=== PATIENT | male | born 1990 | race Caucasian/White ===

== ENCOUNTER 2018-02-03 13:33 | Emergency (ER) | payer SELFPAY ==
[2018-02-03 13:41] VITALS: BP 134/99
--- NOTE | 2018-02-03 14:04 | EDPHY ---
HPI/HX/ROS/PE/MDM Narrative: CHIEF COMPLAINT: Scalp laceration HPI: The patient is a 27-year-old male with no significant past medical history. Tetanus shot is up-to-date. Just prior to arrival, the patient was using his phone when he accidentally walked into the corner of a balcony at his house. He did not lose consciousness. He complains of a laceration to his forehead. He denies other injuries. Bleeding was controlled with dressing. REVIEW OF SYSTEMS: Aside from elements discussed in the HPI, a comprehensive 10-point review of systems was reviewed and is negative. PMH: None significant. SOCIAL HISTORY: Single. Denies drug abuse. PHYSICAL EXAM: General:Patient is alert, in no acute distress. Head: A 2 cm linear laceration is present in the center of the scalp. There is no deformity. There is no active bleeding. ENT:Eyes are normal to inspection. ENT inspection normal. Neck: Normal inspection. Full range of motion. Skin: Normal color. No rash. Warm and dry. Extremities: Normal appearance. Full range of motion. Neuro: Oriented x3. Normal motor function. Normal sensory function. ED Course: Patient was offered sutures versus skin adhesive and has chosen skin adhesive. He declines any local anesthetic. Procedure: Laceration repair with skin glue. The 2 cm laceration on the scalp was cleaned and explored to its base. There were no deep structures involved. The wound was repaired with tissue adhesive, with excellent wound approximation. The procedure was performed by myself. MDM: This patient presents with minor scalp laceration. I think he is very low risk for intracranial injury considering he simply walked into a balcony and is young and otherwise healthy. He has no focal neurologic signs. The patient and I discussed imaging and he agrees to decline imaging at this time. We discussed strict return precautions. General Time Seen by Provider: 02/03/18 13:41 Initial Vital Signs: Initial Vital Signs Temperature (C) 36.5 C 02/03/18 13:39 Heart Rate 95 02/03/18 13:39 Respiratory Rate 18 02/03/18 13:39 Blood Pressure 134/99 H 02/03/18 13:39 O2 Sat (%) 97 02/03/18 13:39 O2 Delivery Mode Room Air Allergies/Adverse Reactions: penicillin G Allergy (Verified 02/03/18 13:37) Sulfa (Sulfonamide Antibiotics) Allergy (Verified 02/03/18 13:37) Home Medications: Medication Instructions Recorded NK [No Known Home Meds] 02/03/18 Departure - Departure Disposition: Home, Routine, Self-Care Clinical Impression: Scalp laceration, Minor head injury Condition: Good Instructions: Care For Your Absorbable Stitches (ED) Additional Instructions: Return to the Emergency Department for fever, redness, discharge from wound, increasing pain or other worsening of condition.
--- NOTE | 2018-02-04 17:20 | ASMTCMCOM ---
CM Note CM Note Notes: CM SBIRT consult received following pt's discharge. Pt presented to the Emergency Department with a head laceration after hitting his head on his balcony. Per provider notes, there was no LOC and the pt has no significant medical history. This was the pt's first visit to this facility. No phone number provided by pt for follow up. CM unable to contact pt regarding potential need for resources. CM available for any further issues or concerns. Date Signed: 02/04/2018 05:20 PM Electronically Signed By:Violeta Fu RN
== END 2018-02-03 14:30 | disposition home or self-care (01) ==
PROC: 0HQ0XZZ Repair Scalp Skin, External Approach (ICD-10-PCS; principal; 2018-02-03)
DX: S01.01XA Laceration without foreign body of scalp, initial encounter (principal); W22.09XA Striking against other stationary object, initial encounter; Y92.019 Unspecified place in single-family (private) house as the place of occurrence of the external cause; Y93.C2 Activity, hand held interactive electronic device

== ENCOUNTER 2018-08-11 10:47 | Emergency (ER) | payer OTHER ==
--- NOTE | 2018-08-11 12:06 | EDPHY ---
General Time Seen by Provider: 08/11/18 12:06 Narrative: CLINICAL IMPRESSION: Right forearm laceration ASSESSMENT/PLAN: Patient is a 27-year-old male with no significant medical history who presents to the emergency department after sustaining a laceration to his right forearm approximately 2 hr prior to arrival. Patient is not toxic appearing, he is in no distress. Physical examination reveals 4 cm superficial laceration to the ulnar aspect of his mid right forearm. There is no evidence of deep structure involvement, neurovascular compromise, foreign body, or bony involvement. The wound was not contaminated, tetanus status was already up-to-date. The wound was irrigated and then repaired as discussed in the procedure note, the patient tolerated this well. Wound care instructions discussed with patient. He does not have a primary care provider, he will return to the emergency department 7- 10 days for suture removal. I have given him a referral to establish care in the area.. Return precautions discussed- he will return for increased pain, signs of infection, fever, vomiting, if the wound opens or for any other concerns. Patient verbalizes understanding and is in agreement with plan. DIFFERENTIAL DIAGNOSIS: includes but not limited to laceration of tendon or vascular structure, underlying fracture, laceration with retained FB ED PROCEDURES: Laceration Repair Verbal consent obtained by patient. Risks discussed, including but not limited to infection, pain, retained foreign body, need for additional repair, poor cosmetic result, tendon damage, nerve damage, poor wound healing, vascular damage. Alternatives to repair discussed. [place] protocol used to establish correct patient, procedure, equipment, administrative support assoc, and site. Anesthesia obtained by local infiltration. Anesthetized with 1% lidocaine with epinephrine. Laceration location right mid forearm, ulnar aspect, length 4 cm, depth 5 mm, Repair type simple. Patient was prepped and draped in usual sterile fashion. Hemostasis achieved with direct pressure. Wound explored through full range of motion and entire depth of wound probed and visualized with gloved finger. No suspicion for nerve damage, tendon damage, underlying fracture, vascular damage, foreign body, or contamination. Area was cleansed with Shur-Clens and irrigated with sterile saline as per protocol. No foreign body or material removed. Repair method 5.0 Prolene suture. Three tension sutures and for additional simple interrupted sutures for a total of 7 sutures were placed. Well aligned, closely approximated. wound was dressed with antibiotic ointment and a sterile dressing. Patient tolerated well with no immediate complications. Wound care: Clean and dry x 24 hours, gently clean with soap and water, cover with topical antibiotic ointment/bandage. Suture/Staple removal: 7-10 Days CHIEF COMPLAINT: Laceration HPI: Patient is a 27-year-old male with no significant medical history who presents to the emergency department after sustaining a laceration to his right forearm while working on his vehicle. Patient reports he was trying to change his alternate her when he accidentally cut his arm on the inside of the vehicle. He immediately was able to get the bleeding under control with a adhesive wrap. He denies any numbness or tingling of the arm or digit. He is right-hand dominant, he is up-to-date on his tetanus status. He denies any other injury or complaint. PAST MEDICAL HISTORY: Denies Pertinent Past Surgical History: Denies Social History: Denies cigarette smoking or illicit drug use REVIEW OF SYSTEMS: All other systems negative Constitutional: No fever, no chills Musculoskeletal: No deformity, no joint pain Skin: Denies rash, right forearm laceration. Neurological: No sensory loss or weakness. PHYSICAL EXAM: General Appearance: Alert, oriented, appropriate for age, cooperative, NAD, well hydrated, non-toxic appearing, VSS, no hypoxia. Neurological: Alert and oriented x 3 Skin: Right forearm with 4 cm laceration on the ulnar aspect of the mid forearm. Musculoskeletal: Patient with minimal associated tenderness to palpation of the mid forearm. He is able to supinate and pronate without difficulty. The radial, ulnar and median nerves were all tested. Radial nerve: Patient is able to extend wrist and fingers of the local joints. Ulnar nerve: Patient is able to abduct all fingers. Median nerve patient is able to oppose thumb to pinky. Radial pulse 2 +bilaterally. MEDICAL DECISION MAKING: Patient was seen independently. Secondary supervising physician at time of evaluation was Dr. Rascon, he did not evaluate this patient. Diagnosis: Right forearm laceration. New, requires workup Summary: See assessment and plan for summary of ED visit Clinical lab tests: Not applicable. Independent visualization of images, tracing, or specimens not applicable. Decision to obtain medical records or history from someone other than the patient: No Review / Summarize previous medical records: Yes Discussed patient with another provider: Yes, Dr. Rascon. - History Smoking Status: Never smoked - Objective Vital Signs: Initial Vital Signs Temperature (C) 36.6 C 08/11/18 10:50 Heart Rate 66 08/11/18 10:50 Respiratory Rate 18 08/11/18 10:50 Blood Pressure 125/78 H 08/11/18 10:50 O2 Sat (%) 97 08/11/18 10:50 O2 Delivery Mode Room Air Allergies/Adverse Reactions: penicillin G Allergy (Verified 08/11/18 10:49) Sulfa (Sulfonamide Antibiotics) Allergy (Verified 08/11/18 10:49) Home Medications: Medication Instructions Recorded NK [No Known Home Meds] 02/03/18 Departure - Departure Disposition: Home, Routine, Self-Care Clinical Impression: Laceration of forearm, right Qualifiers: Encounter type: initial encounter Qualified Code(s): S51.811A - Laceration without foreign body of right forearm, initial encounter Condition: Good Instructions: Laceration (ED) Additional Instructions: DISCHARGE INSTRUCTIONS FROM YOUR DOCTOR Thank you for visiting our emergency department today. Please keep in mind that discharge from the emergency department does not mean that there is nothing wrong - it simply means that we have not identified an emergency condition that requires further evaluation or treatment in the hospital. You should always plan to follow up with primary care for re-evaluation of your condition in the next 2-3 days. Keep wound clean and dry for 24 hours. Then remove dressing, clean at least twice daily or when soiled with soap and water, apply antibiotic ointment and dressing. Do not soak the wound while the stitches are in place. Return to the emergency department in 7-10 days for suture removal. For pain control: You may take Tylenol, I recommend 500-1000 mg every 6-8 hours as needed. Take with food and a full glass of water. Stop taking if this is upsetting her stomach. Do not exceed 4000]mg in a 24 hr period. You may also take ibuprofen, recommend 400 mg every 6 hr. Take with food and a full glass of water. Stop taking if this upsets her stomach. Do not exceed 2400 mg in a 24 hr period. Return for signs of wound infection ie: redness, swelling, drainage, foul odor, red streaks, fever, chills, pain, bleeding, if the stitches pop, if the wound opens or for any other new, worsening or worrisome symptoms. People present with illnesses and injuries in different ways, and it is always possible that we have missed something. You may always return for re-evaluation if symptoms worsen or if they are not improving or if you develop new/different symptoms. Again, thank you for choosing our emergency department. We hope that you feel better. Referrals: Fannie Apple MD [Medical Doctor] - As per Instructions (Please establish care with a primary care provider.)
[2018-08-11 13:08] VITALS: BP 128/84
== END 2018-08-11 13:08 | disposition home or self-care (01) ==
PROC: 0HQDXZZ Repair Right Lower Arm Skin, External Approach (ICD-10-PCS; principal; 2018-08-11)
DX: S51.811A Laceration without foreign body of right forearm, initial encounter (principal); W26.8XXA Contact with other sharp object(s), not elsewhere classified, initial encounter; Y93.89 Activity, other specified; Y92.810 Car as the place of occurrence of the external cause

== ENCOUNTER 2018-09-26 14:42 | Inpatient (IN) | payer OTHER ==
[2018-09-26] MEDS ORDERED: IOPAMIDOL (ISOVUE-300) 100 ML BTL ONE (14:53)
[2018-09-26] MEDS ORDERED: fentaNYL 100 MCG/2 ML INJ ONE (14:54)
[2018-09-26] MEDS ORDERED: ONDANSETRON 4 MG/2 ML VIAL ONE ×2 (14:55→17:40)
[2018-09-26] MEDS ORDERED: fentaNYL 100 MCG/2 ML INJ IVP ONE ×2 (15:00→15:24)
[2018-09-26] MEDS ORDERED: ONDANSETRON 4 MG/2 ML VIAL IVP ONE (15:24)
[2018-09-26] MEDS ORDERED: LET GEL TOPICAL 1 EA SYR TP ONE ×2 (15:44→15:47)
[2018-09-26] MEDS: HYDROmorphONE/DILAUDID 1 MG/ML INJ IVP PRN ×2 (16:26→16:56)
[2018-09-26] MEDS ORDERED: BUPIVACAINE 0.5% 30 ML SDV ONE (16:52)
[2018-09-26] MEDS ORDERED: NALOXONE HCL 0.4 MG/ML INJ IVP PRN ×2 (16:53→20:43)
[2018-09-26] MEDS ORDERED: ONDANSETRON DISINTEGRATING 4 MG TAB PO PRN (16:53)
[2018-09-26] MEDS ORDERED: NS 1,000 ML IV SCH (17:00)
[2018-09-26] MEDS ORDERED: PROPOFOL 200 MG/20 ML VIAL ONE ×2 (17:37→18:00)
[2018-09-26] MEDS ORDERED: DEXAMETHASONE 4 MG/ML VIAL ONE ×2 (17:40)
[2018-09-26] MEDS ORDERED: ceFAZolin 1 GM VIAL ONE ×3 (17:42→20:03)
[2018-09-26] MEDS ORDERED: LIDOCAINE 2% 2 ML INJ ONE ×3 (17:44→18:28)
[2018-09-26] MEDS ORDERED: ROCURONIUM 50 MG/5 ML VIAL ONE (17:51)
[2018-09-26] MEDS ORDERED: OXYCODONE/APAP 5/325 TAB PO PRN (20:43)
[2018-09-26] MEDS ORDERED: DIAZEPAM 5 MG/ML 1 ML SYR IVP PRN (20:43)
[2018-09-26] MEDS ORDERED: LR 500 ML IV PRN (20:43)
[2018-09-26] MEDS ORDERED: PROMETHAZINE HCL 25 MG/ML INJ IVP PRN (20:43)
[2018-09-26] MEDS ORDERED: HYDROCODONE/APAP 5/325 TAB PO PRN (20:43)
[2018-09-26] MEDS ORDERED: fentaNYL 100 MCG/2 ML INJ IVP PRN (20:43)
[2018-09-26] MEDS ORDERED: MEPERIDINE 25 MG/0.5 ML AMP IVP PRN (20:43)
[2018-09-26] MEDS ORDERED: ACETAMINOPHEN 500 MG TAB PO PRN (20:43)
[2018-09-26] MEDS ORDERED: ONDANSETRON 4 MG/2 ML VIAL IVP PRN (20:43)
[2018-09-26] MEDS ORDERED: BACITRACIN ZINC 0.5 OZ OINTTUBE TP ONE (20:51)
[2018-09-26] MEDS: IBUPROFEN 600 MG TAB PO SCH (23:10)
[2018-09-27] MEDS: HYDROmorphONE/DILAUDID 1 MG/ML INJ IVP PRN ×5 (00:05→19:55)
[2018-09-27] MEDS: IBUPROFEN 600 MG TAB PO SCH ×3 (05:36→23:04)
[2018-09-27] MEDS: oxyCODONE IR 5 MG TAB PO PRN ×3 (10:48→19:53)
[2018-09-27] MEDS: ENOXAPARIN 40 MG/0.4 ML SYR SC SCH (11:02)
[2018-09-28] MEDS: HYDROmorphONE/DILAUDID 1 MG/ML INJ IVP PRN ×3 (00:55→15:14)
[2018-09-28] MEDS: oxyCODONE IR 5 MG TAB PO PRN ×4 (00:58→17:58)
[2018-09-28] MEDS: IBUPROFEN 600 MG TAB PO SCH ×3 (05:45→21:10)
[2018-09-28] MEDS ORDERED: BISACODYL 10 MG SUPP PR PRN (08:18)
[2018-09-28] MEDS: POLYETHYLENE GLYCOL 3350 17 GM PKT PO PRN (09:22)
[2018-09-28] MEDS: SENNOSIDES/DOCUSATE SODIUM TAB PO SCH ×2 (09:22→20:58)
[2018-09-28] MEDS: CIPROFLOXACIN 3.5 GM OPHT.OINT EACHEYE SCH ×3 (09:35→21:08)
[2018-09-28] MEDS: ENOXAPARIN 40 MG/0.4 ML SYR SC SCH (09:46)
[2018-09-28] MEDS: ACETAMINOPHEN 500 MG TAB PO SCH ×2 (16:09→21:10)
[2018-09-28] MEDS: NEOMY SULF/BACITRAC ZN/POLY 30 GM OINTTUBE TP SCH (20:59)
[2018-09-29] MEDS: oxyCODONE IR 5 MG TAB PO PRN ×5 (00:19→19:48)
[2018-09-29] MEDS: HYDROmorphONE/DILAUDID 1 MG/ML INJ IVP PRN (00:46)
[2018-09-29] MEDS: ACETAMINOPHEN 500 MG TAB PO SCH ×2 (05:57→18:08)
[2018-09-29] MEDS: IBUPROFEN 600 MG TAB PO SCH ×3 (05:58→21:54)
[2018-09-29] MEDS: SENNOSIDES/DOCUSATE SODIUM TAB PO SCH ×2 (09:01→21:54)
[2018-09-29] MEDS: CIPROFLOXACIN 3.5 GM OPHT.OINT EACHEYE SCH ×3 (09:07→21:55)
[2018-09-29] MEDS: NEOMY SULF/BACITRAC ZN/POLY 30 GM OINTTUBE TP SCH ×2 (10:14→20:13)
[2018-09-29] MEDS: ENOXAPARIN 40 MG/0.4 ML SYR SC SCH (10:31)
[2018-09-29] MEDS: traMADol 50 MG TAB PO PRN (20:27)
[2018-09-29] MEDS: PATCH REMOVAL 1 EA PATCH TD SCH (20:28)
[2018-09-30] MEDS: oxyCODONE IR 5 MG TAB PO PRN ×4 (00:21→19:37)
[2018-09-30] MEDS: ACETAMINOPHEN 500 MG TAB PO SCH ×3 (02:09→18:10)
[2018-09-30] MEDS: traMADol 50 MG TAB PO PRN (02:10)
[2018-09-30] MEDS: IBUPROFEN 600 MG TAB PO SCH (05:52)
[2018-09-30] MEDS: CIPROFLOXACIN 3.5 GM OPHT.OINT EACHEYE SCH ×3 (08:04→21:11)
[2018-09-30] MEDS: ENOXAPARIN 40 MG/0.4 ML SYR SC SCH (08:04)
[2018-09-30] MEDS: POLYETHYLENE GLYCOL 3350 17 GM PKT PO PRN (08:05)
[2018-09-30] MEDS: LIDOCAINE 4%/MENTHOL 1% PATCH TD SCH (08:05)
[2018-09-30] MEDS: SENNOSIDES/DOCUSATE SODIUM TAB PO SCH ×2 (08:05→21:11)
[2018-09-30] MEDS: IBUPROFEN 800 MG TAB PO SCH ×2 (14:03→21:11)
[2018-09-30] MEDS: NEOMY SULF/BACITRAC ZN/POLY 30 GM OINTTUBE TP SCH ×2 (15:00→21:12)
[2018-09-30] MEDS: diphenhydrAMINE 25 MG CAP PO PRN (21:11)
[2018-09-30] MEDS: MAGNESIUM HYDROXIDE 30 ML UDCUP PO PRN (21:11)
[2018-09-30] MEDS: PATCH REMOVAL 1 EA PATCH TD SCH (21:12)
[2018-10-01] MEDS: traMADol 50 MG TAB PO PRN (01:29)
[2018-10-01] MEDS: ACETAMINOPHEN 500 MG TAB PO SCH ×3 (02:11→17:29)
[2018-10-01] MEDS: IBUPROFEN 800 MG TAB PO SCH ×3 (05:23→21:03)
[2018-10-01] MEDS: CIPROFLOXACIN 3.5 GM OPHT.OINT EACHEYE SCH ×4 (07:50→22:52)
[2018-10-01] MEDS: oxyCODONE IR 5 MG TAB PO PRN ×3 (07:50→22:49)
[2018-10-01] MEDS: LIDOCAINE 4%/MENTHOL 1% PATCH TD SCH (07:50)
[2018-10-01] MEDS: ENOXAPARIN 40 MG/0.4 ML SYR SC SCH (07:51)
[2018-10-01] MEDS: POLYETHYLENE GLYCOL 3350 17 GM PKT PO PRN (07:51)
[2018-10-01] MEDS: SENNOSIDES/DOCUSATE SODIUM TAB PO SCH ×2 (07:51→21:03)
[2018-10-01] MEDS: MAGNESIUM HYDROXIDE 30 ML UDCUP PO PRN (07:52)
[2018-10-01] MEDS: NEOMY SULF/BACITRAC ZN/POLY 30 GM OINTTUBE TP SCH ×2 (08:15→21:04)
[2018-10-01] MEDS: diphenhydrAMINE 25 MG CAP PO PRN (21:04)
[2018-10-01] MEDS: PATCH REMOVAL 1 EA PATCH TD SCH (22:53)
[2018-10-02] MEDS: ACETAMINOPHEN 500 MG TAB PO SCH ×3 (02:46→17:57)
[2018-10-02] MEDS: diphenhydrAMINE 25 MG CAP PO PRN ×2 (02:46→20:59)
[2018-10-02] MEDS: oxyCODONE IR 5 MG TAB PO PRN ×4 (02:47→20:48)
[2018-10-02] MEDS: IBUPROFEN 800 MG TAB PO SCH ×3 (06:01→22:50)
[2018-10-02] MEDS: SENNOSIDES/DOCUSATE SODIUM TAB PO SCH ×2 (07:54→21:37)
[2018-10-02] MEDS: ENOXAPARIN 40 MG/0.4 ML SYR SC SCH (07:54)
[2018-10-02] MEDS: LIDOCAINE 4%/MENTHOL 1% PATCH TD SCH (07:55)
[2018-10-02] MEDS: MAGNESIUM HYDROXIDE 30 ML UDCUP PO PRN (08:01)
[2018-10-02] MEDS: CIPROFLOXACIN 3.5 GM OPHT.OINT EACHEYE SCH ×3 (11:55→23:54)
[2018-10-02] MEDS: NEOMY SULF/BACITRAC ZN/POLY 30 GM OINTTUBE TP SCH ×2 (15:08→22:42)
[2018-10-02] MEDS: PATCH REMOVAL 1 EA PATCH TD SCH (22:42)
[2018-10-03] MEDS: oxyCODONE IR 5 MG TAB PO PRN (02:06)
[2018-10-03] MEDS: ACETAMINOPHEN 500 MG TAB PO SCH ×3 (02:50→18:34)
[2018-10-03] MEDS: IBUPROFEN 800 MG TAB PO SCH ×3 (05:48→21:31)
[2018-10-03] MEDS: NEOMY SULF/BACITRAC ZN/POLY 30 GM OINTTUBE TP SCH ×2 (10:14→21:34)
[2018-10-03] MEDS: CIPROFLOXACIN 3.5 GM OPHT.OINT EACHEYE SCH ×2 (10:34→17:12)
[2018-10-03] MEDS: LIDOCAINE 4%/MENTHOL 1% PATCH TD SCH (10:35)
[2018-10-03] MEDS: ENOXAPARIN 40 MG/0.4 ML SYR SC SCH (10:35)
[2018-10-03] MEDS: SENNOSIDES/DOCUSATE SODIUM TAB PO SCH (10:35)
[2018-10-03] MEDS: diphenhydrAMINE 25 MG CAP PO PRN (21:32)
[2018-10-03] MEDS: traMADol 50 MG TAB PO PRN (21:47)
[2018-10-04] MEDS: CIPROFLOXACIN 3.5 GM OPHT.OINT EACHEYE SCH ×4 (00:15→20:04)
[2018-10-04] MEDS: SENNOSIDES/DOCUSATE SODIUM TAB PO SCH ×3 (00:16→20:09)
[2018-10-04] MEDS: PATCH REMOVAL 1 EA PATCH TD SCH ×2 (00:20→22:11)
[2018-10-04] MEDS: ACETAMINOPHEN 500 MG TAB PO SCH ×3 (02:04→20:01)
[2018-10-04] MEDS: traMADol 50 MG TAB PO PRN (05:34)
[2018-10-04] MEDS: IBUPROFEN 800 MG TAB PO SCH ×3 (05:41→21:02)
[2018-10-04] MEDS: ENOXAPARIN 40 MG/0.4 ML SYR SC SCH (08:54)
[2018-10-04] MEDS: LIDOCAINE 4%/MENTHOL 1% PATCH TD SCH (08:54)
[2018-10-04] MEDS: NEOMY SULF/BACITRAC ZN/POLY 30 GM OINTTUBE TP SCH ×2 (09:45→20:15)
[2018-10-04] MEDS: MAGNESIUM HYDROXIDE 30 ML UDCUP PO PRN (15:11)
[2018-10-04] MEDS ORDERED: LORazepam 2 MG/ML INJ IVP ONE (17:40)
[2018-10-04] MEDS: diphenhydrAMINE 25 MG CAP PO PRN (20:22)
[2018-10-04] MEDS: oxyCODONE IR 5 MG TAB PO PRN (21:03)
[2018-10-05] MEDS: ACETAMINOPHEN 500 MG TAB PO SCH ×3 (03:13→17:48)
[2018-10-05] MEDS: IBUPROFEN 800 MG TAB PO SCH ×3 (05:16→22:35)
[2018-10-05] MEDS: MAGNESIUM HYDROXIDE 30 ML UDCUP PO PRN (09:42)
[2018-10-05] MEDS: LIDOCAINE 4%/MENTHOL 1% PATCH TD SCH (09:43)
[2018-10-05] MEDS: NEOMY SULF/BACITRAC ZN/POLY 30 GM OINTTUBE TP SCH (09:50)
[2018-10-05] MEDS: CIPROFLOXACIN 3.5 GM OPHT.OINT EACHEYE SCH ×3 (09:51→22:35)
[2018-10-05] MEDS: SENNOSIDES/DOCUSATE SODIUM TAB PO SCH ×2 (09:51→22:35)
[2018-10-05] MEDS: NS 1,000 ML IV SCH (15:11)
[2018-10-05] MEDS ORDERED: PHYTONADIONE 10 MG in NS 50 ML IV ONE (18:06)
[2018-10-05] MEDS ORDERED: MIDAZOLAM 2 MG/2 ML VIAL IVP ONE (21:08)
[2018-10-05] MEDS ORDERED: PROPOFOL/EMULSION 500 MG/50 ML BOTTLE IV ONE ×2 (21:31→23:53)
[2018-10-05] MEDS ORDERED: fentaNYL 250 MCG/5 ML INJ ONE (21:31)
[2018-10-05] MEDS ORDERED: LIDOCAINE 2% 2 ML INJ ONE (21:33)
[2018-10-05] MEDS ORDERED: ONDANSETRON 4 MG/2 ML VIAL ONE (21:33)
[2018-10-05] MEDS ORDERED: ROCURONIUM 50 MG/5 ML VIAL ONE (21:33)
[2018-10-05] MEDS: PATCH REMOVAL 1 EA PATCH TD SCH (22:00)
[2018-10-05] MEDS ORDERED: TALC 3 GM INTRAPLEURAL VIAL ONE (22:12)
[2018-10-05] MEDS ORDERED: BUPIVACAINE/EPI 0.5% 30 ML SDV ONE (22:12)
[2018-10-05] MEDS ORDERED: levOFLOXACIN 500 MG/DEXTROSE/100 ML BAG IV ONE (22:17)
[2018-10-05] MEDS ORDERED: MIDAZOLAM 2 MG/2 ML VIAL ONE (22:17)
[2018-10-05] MEDS ORDERED: BUPIVACAINE 0.5% 30 ML SDV ONE (23:17)
[2018-10-05] MEDS ORDERED: HEPARIN 1000 UNIT/1 ML MDV ONE ×2 (23:28→23:51)
[2018-10-05] MEDS ORDERED: *INFUSION*TRANEX ACID 1,000 MG/NS 100 ML IV ONE (23:30)
[2018-10-06] MEDS ORDERED: fentaNYL 100 MCG/2 ML INJ ONE ×2 (00:09→01:56)
[2018-10-06] MEDS ORDERED: HYDROmorphONE/DILAUDID 2 MG/ML INJ ONE (00:38)
[2018-10-06] MEDS ORDERED: HYDROmorphONE/DILAUDID 1 MG/ML INJ IVP PRN ×2 (01:09→01:16)
[2018-10-06] MEDS ORDERED: PROMETHAZINE HCL 25 MG/ML INJ ONE (01:10)
[2018-10-06] MEDS ORDERED: PROMETHAZINE HCL 25 MG/ML INJ IVP PRN (01:16)
[2018-10-06] MEDS ORDERED: DIAZEPAM 10 MG/2 ML SYR IVP PRN (01:16)
[2018-10-06] MEDS ORDERED: fentaNYL 100 MCG/2 ML INJ IVP PRN (01:16)
[2018-10-06] MEDS ORDERED: NALOXONE HCL 0.4 MG/ML INJ IVP PRN (01:16)
[2018-10-06] MEDS ORDERED: ONDANSETRON 4 MG/2 ML VIAL IVP PRN (01:16)
[2018-10-06] MEDS: ACETAMINOPHEN 500 MG TAB PO SCH ×3 (02:47→17:31)
[2018-10-06] MEDS: oxyCODONE IR 5 MG TAB PO PRN ×4 (02:47→17:42)
[2018-10-06] MEDS: NEOMY SULF/BACITRAC ZN/POLY 30 GM OINTTUBE TP SCH ×3 (03:28→20:33)
[2018-10-06] MEDS: IBUPROFEN 800 MG TAB PO SCH ×3 (05:25→20:55)
[2018-10-06] MEDS: NS 1,000 ML IV SCH ×2 (06:16→17:31)
[2018-10-06] MEDS: LIDOCAINE 4%/MENTHOL 1% PATCH TD SCH (11:05)
[2018-10-06] MEDS: SENNOSIDES/DOCUSATE SODIUM TAB PO SCH ×2 (11:05→20:33)
[2018-10-06] MEDS: CIPROFLOXACIN 3.5 GM OPHT.OINT EACHEYE SCH ×3 (12:37→20:40)
[2018-10-06] MEDS: PATCH REMOVAL 1 EA PATCH TD SCH (20:34)
[2018-10-06] MEDS: diphenhydrAMINE 25 MG CAP PO PRN (20:57)
[2018-10-07] MEDS: oxyCODONE IR 5 MG TAB PO PRN ×3 (02:41→20:58)
[2018-10-07] MEDS: NS 1,000 ML IV SCH (02:46)
[2018-10-07] MEDS: ACETAMINOPHEN 500 MG TAB PO SCH ×3 (02:48→18:22)
[2018-10-07] MEDS: IBUPROFEN 800 MG TAB PO SCH ×3 (05:47→21:00)
[2018-10-07] MEDS: CIPROFLOXACIN 3.5 GM OPHT.OINT EACHEYE SCH ×3 (09:26→20:59)
[2018-10-07] MEDS: LIDOCAINE 4%/MENTHOL 1% PATCH TD SCH (09:27)
[2018-10-07] MEDS: NEOMY SULF/BACITRAC ZN/POLY 30 GM OINTTUBE TP SCH ×2 (09:34→20:57)
[2018-10-07] MEDS: SENNOSIDES/DOCUSATE SODIUM TAB PO SCH ×2 (09:38→20:58)
[2018-10-07] MEDS: MAGNESIUM HYDROXIDE 30 ML UDCUP PO PRN (09:38)
[2018-10-07] MEDS: PATCH REMOVAL 1 EA PATCH TD SCH (20:59)
[2018-10-08] MEDS: ACETAMINOPHEN 500 MG TAB PO SCH ×3 (02:05→18:18)
[2018-10-08] MEDS: oxyCODONE IR 5 MG TAB PO PRN ×2 (06:07→16:27)
[2018-10-08] MEDS: IBUPROFEN 800 MG TAB PO SCH ×3 (06:07→20:57)
[2018-10-08] MEDS: SENNOSIDES/DOCUSATE SODIUM TAB PO SCH ×2 (09:55→20:58)
[2018-10-08] MEDS: LIDOCAINE 4%/MENTHOL 1% PATCH TD SCH (09:57)
[2018-10-08] MEDS: CIPROFLOXACIN 3.5 GM OPHT.OINT EACHEYE SCH ×3 (09:57→20:56)
[2018-10-08] MEDS: NEOMY SULF/BACITRAC ZN/POLY 30 GM OINTTUBE TP SCH ×2 (09:58→20:57)
[2018-10-08] MEDS: diphenhydrAMINE 25 MG CAP PO PRN (20:58)
[2018-10-08] MEDS: PATCH REMOVAL 1 EA PATCH TD SCH (20:58)
[2018-10-09] MEDS: oxyCODONE IR 5 MG TAB PO PRN ×2 (01:48→16:11)
[2018-10-09] MEDS: ACETAMINOPHEN 500 MG TAB PO SCH ×3 (01:48→18:37)
[2018-10-09] MEDS: IBUPROFEN 800 MG TAB PO SCH ×3 (05:49→21:37)
[2018-10-09] MEDS: CIPROFLOXACIN 3.5 GM OPHT.OINT EACHEYE SCH ×3 (08:51→21:37)
[2018-10-09] MEDS: LIDOCAINE 4%/MENTHOL 1% PATCH TD SCH (09:23)
[2018-10-09] MEDS: SENNOSIDES/DOCUSATE SODIUM TAB PO SCH ×2 (10:48→21:38)
[2018-10-09] MEDS: NEOMY SULF/BACITRAC ZN/POLY 30 GM OINTTUBE TP SCH ×2 (10:49→21:37)
[2018-10-09] MEDS: MAGNESIUM HYDROXIDE 30 ML UDCUP PO PRN (16:11)
[2018-10-09] MEDS: PATCH REMOVAL 1 EA PATCH TD SCH (21:38)
[2018-10-10] MEDS: oxyCODONE IR 5 MG TAB PO PRN ×2 (00:19→15:22)
[2018-10-10] MEDS: diphenhydrAMINE 25 MG CAP PO PRN (00:19)
[2018-10-10] MEDS: ACETAMINOPHEN 500 MG TAB PO SCH ×3 (04:34→17:57)
[2018-10-10] MEDS: IBUPROFEN 800 MG TAB PO SCH ×3 (05:55→21:49)
[2018-10-10] MEDS ORDERED: LORazepam 2 MG/ML INJ IVP ONE ×2 (08:26→10:45)
[2018-10-10] MEDS: SENNOSIDES/DOCUSATE SODIUM TAB PO SCH ×2 (10:51→21:48)
[2018-10-10] MEDS: LIDOCAINE 4%/MENTHOL 1% PATCH TD SCH (11:38)
[2018-10-10] MEDS: CIPROFLOXACIN 3.5 GM OPHT.OINT EACHEYE SCH ×2 (11:38→17:17)
[2018-10-10] MEDS: NEOMY SULF/BACITRAC ZN/POLY 30 GM OINTTUBE TP SCH (11:39)
[2018-10-11] MEDS: PATCH REMOVAL 1 EA PATCH TD SCH (01:46)
[2018-10-11] MEDS: NEOMY SULF/BACITRAC ZN/POLY 30 GM OINTTUBE TP SCH ×2 (01:46→08:15)
[2018-10-11] MEDS: CIPROFLOXACIN 3.5 GM OPHT.OINT EACHEYE SCH ×3 (01:46→16:06)
[2018-10-11] MEDS: ACETAMINOPHEN 500 MG TAB PO SCH ×2 (02:19→11:00)
[2018-10-11] MEDS: IBUPROFEN 800 MG TAB PO SCH ×2 (05:42→14:23)
[2018-10-11] MEDS: SENNOSIDES/DOCUSATE SODIUM TAB PO SCH (08:16)
[2018-10-11] MEDS: LIDOCAINE 4%/MENTHOL 1% PATCH TD SCH (08:24)
[2018-10-11] MEDS: oxyCODONE IR 5 MG TAB PO PRN (14:47)
== END 2018-10-11 16:19 | DRG 958 ==
DX: S52.501A Unspecified fracture of the lower end of right radius, initial encounter for closed fracture (principal); S22.41XA Multiple fractures of ribs, right side, initial encounter for closed fracture; S27.2XXA Traumatic hemopneumothorax, initial encounter; S32.301A Unspecified fracture of right ilium, initial encounter for closed fracture; S02.19XA Other fracture of base of skull, initial encounter for closed fracture; S02.40EA Zygomatic fracture, right side, initial encounter for closed fracture; S02.81XA Fracture of other specified skull and facial bones, right side, initial encounter for closed fracture; S62.002A Unspecified fracture of navicular [scaphoid] bone of left wrist, initial encounter for closed fracture; S01.81XA Laceration without foreign body of other part of head, initial encounter; S01.01XA Laceration without foreign body of scalp, initial encounter; R40.2412 Glasgow coma scale score 13-15, at arrival to emergency department; W17.89XA Other fall from one level to another, initial encounter; Y93.31 Activity, mountain climbing, rock climbing and wall climbing; Y92.830 Public park as the place of occurrence of the external cause

== ENCOUNTER 2018-10-11 16:21 | Inpatient (IN) | payer OTHER ==
[2018-10-11] MEDS ORDERED: oxyCODONE IR 5 MG TAB PO PRN (17:19)
[2018-10-11] MEDS ORDERED: ACETAMINOPHEN 325 MG TAB PO PRN (17:27)
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
[2018-10-11] MEDS ORDERED: PATCH REMOVAL 1 EA PATCH TD SCH (21:00)
[2018-10-11] MEDS: IBUPROFEN 800 MG TAB PO SCH (21:12)
[2018-10-11] MEDS: traMADol 50 MG TAB PO PRN (21:12)
[2018-10-11] MEDS: NEOMY SULF/BACITRAC ZN/POLY 30 GM OINTTUBE TP SCH (21:13)
[2018-10-11] MEDS ORDERED: CIPROFLOXACIN 3.5 GM OPHT.OINT EACHEYE SCH (22:00)
[2018-10-12 04:54] LABS: PLATELET COUNT 505 10^3/uL (150-400)
[2018-10-12] MEDS: IBUPROFEN 800 MG TAB PO SCH ×3 (07:17→21:24)
[2018-10-12] MEDS ORDERED: LIDOCAINE 4%/MENTHOL 1% PATCH TD SCH (09:00)
--- NOTE | 2018-10-12 09:52 | PDOREHIP ---
Admission [facility] - Admission - 3 Day Assessment Period Admission Date/Day 1: 10/11/18 Day 2: 10/12/18 Day 3: 10/13/18 - Active Diagnoses Comorbidities and Co-existing Conditions at Admission: [id number]. None of the Above - Skin Conditions Unhealed Pressure Ulcer (1 or more/Stage 1 or >)-Admission: 0. No # Stage 1 Pressure Ulcers-Admission: 0 # Stage 2 Pressure Ulcers-Admission: 0 # Stage 3 Pressure Ulcers-Admission: 0 # Stage 4 Pressure Ulcers-Admission: 0 # Unstageable Pressure Ulcers (Non-remove Dress)-Admission: 0 # Unstageable Pressure Ulcers (Slough/Eschar)-Admission: 0 # Unstageable Pressure Ulcers (Deep Tissue Injury)-Admission: 0
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
[2018-10-12] MEDS: NEOMY SULF/BACITRAC ZN/POLY 30 GM OINTTUBE TP SCH ×2 (10:00→21:26)
[2018-10-12] MEDS: traMADol 50 MG TAB PO PRN ×2 (12:56→21:25)
[2018-10-13] MEDS: IBUPROFEN 800 MG TAB PO SCH ×2 (06:13→13:56)
[2018-10-13] MEDS: NEOMY SULF/BACITRAC ZN/POLY 30 GM OINTTUBE TP SCH (08:25)
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
[2018-10-13] MEDS: traMADol 50 MG TAB PO PRN (14:32)
[2018-10-14] MEDS: traMADol 50 MG TAB PO PRN ×2 (01:44→17:58)
[2018-10-14] MEDS: IBUPROFEN 800 MG TAB PO SCH ×4 (01:45→20:51)
[2018-10-14] MEDS: NEOMY SULF/BACITRAC ZN/POLY 30 GM OINTTUBE TP SCH ×3 (01:48→20:52)
[2018-10-14] MEDS: SENNOSIDES 1 TAB PO PRN (07:48)
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
[2018-10-14] MEDS: MAGNESIUM HYDROXIDE 30 ML UDCUP PO PRN (12:29)
[2018-10-15] MEDS: traMADol 50 MG TAB PO PRN ×2 (06:10→14:26)
[2018-10-15] MEDS: IBUPROFEN 800 MG TAB PO SCH ×3 (06:11→21:11)
[2018-10-15] MEDS: SENNOSIDES 1 TAB PO PRN (08:14)
[2018-10-15] MEDS: MAGNESIUM HYDROXIDE 30 ML UDCUP PO PRN (08:16)
[2018-10-15] MEDS: NEOMY SULF/BACITRAC ZN/POLY 30 GM OINTTUBE TP SCH ×2 (08:18→21:13)
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
[2018-10-16] MEDS: IBUPROFEN 800 MG TAB PO SCH ×3 (05:50→21:18)
[2018-10-16] MEDS: traMADol 50 MG TAB PO PRN ×3 (05:50→21:18)
[2018-10-16] MEDS: NEOMY SULF/BACITRAC ZN/POLY 30 GM OINTTUBE TP SCH ×2 (07:41→21:19)
[2018-10-16] MEDS: SENNOSIDES 1 TAB PO PRN (08:14)
[2018-10-16] MEDS: POLYETHYLENE GLYCOL 3350 17 GM PKT PO SCH (10:42)
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
[2018-10-16 20:18] LABS: PLATELET COUNT 493 10^3/uL (150-400)
[2018-10-17] MEDS: IBUPROFEN 800 MG TAB PO SCH ×3 (05:40→20:30)
[2018-10-17] MEDS: traMADol 50 MG TAB PO PRN ×2 (05:40→20:30)
[2018-10-17] MEDS: POLYETHYLENE GLYCOL 3350 17 GM PKT PO SCH (08:04)
[2018-10-17] MEDS: NEOMY SULF/BACITRAC ZN/POLY 30 GM OINTTUBE TP SCH ×2 (08:05→20:32)
--- NOTE | 2018-10-17 12:31 | SOAPPROG ---
SOAP Progress Note Assessment/Plan: Assessment: Multiple trauma with touchdown weightbearing on the right lower extremity and use of a platform walker with right forearm on the platform. * Initial functional independence member measure is 93 on 10/13/2018. Independent with bed mobility and transfers. Ambulating 300 ft with bilateral platform front wheeled walker. and standby assist. Climbed and descended 1 curb step with standby assist. Grooming and hygiene are done standing with standby assist. Setup for a bottle dressing, minimal assist. Toilet and shower transfers are done with standby to contact guard assist, and bathing with standby to contact guard assist. * Has since ambulated greater than 500 ft. Did a car transfer with standby assist. ADLs with modified independence. Advanced to independent in his room with platform front wheeled walker, 10/17/2018. * Continue PT and OT to optimize mobility, instruct regarding weightbearing restriction, and optimize activities of daily living. Flail chest and hemopneumothorax, status post video-assisted thoracoscopy: No signs or symptoms of respiratory decompensation. * Pneumothorax stable on chest x-ray 10/12/2018. Repeat chest x-ray pending 2018, and will get opinion of Trauma service regarding safety of travel. Orthopedic injuries: * Touchdown weight-bearing right lower extremity, weight-bearing as tolerated through elbows on forearms bilateral upper extremities. External fixator on left wrist. * Orthopedic surgeon Dr. Burk would like to see him in follow-up on TuesdayOctober 21 or TuesdayOctober 25. Patient states he plans to go to [place] where his parents live when he discharges on 10/18/2018, and will follow up with a surgeon there. Possible right shoulder and right knee ligament injuries. These are not interfering with his ability to function in the rehabilitation setting. He is likely to have some healing over the next several weeks. Unless symptoms interfere with function, will not pursue further imaging at present. Tripod fracture of the right cheek and right orbital floor fracture: He is to avoid right-side facial contact or manipulation for a total of 5 weeks, which would be approximately November 05. Bacitracin should be applied to abrasions b.i.d. Will need to discuss with ENT regarding the duration of the ciprofloxacin ophthalmic ointment. Pain management: Doing well with tramadol and not using oxycodone. He did not use lidocaine patch and this has been discontinued, 10/12/2018. Constipation. Continue senna p.r.n.. Continue MOM p.r.n.. Schedule polyethylene glycol daily starting 10/16/2018. Anemia and hyponatremia in the hospital, fatigue, afternoon of 10/16/2018. Vitals are reassuring. * Resolved, of 12/2018. CBC with improved anemia. Normal BMP. Weight loss. He will have consultation with the dietitian. DISPOSITION: Discharge date set for 10/18/2018. He reports he will be read turning to [place] by car to stay with his parents and he plans to follow up with orthopedic surgeon in [place] regarding his injuries. Followup: Trauma Surgery 10/12/2018 seen on unit repeat chest x-ray ordered for and will be seen subsequently by Dr. Keating. Orthopedic Surgery: Discussed with Dr. Wm Baltazar's clothing sales assistant 10/16/2018. Per her request, obtained bilateral wrist and AP pelvis x-rays, 10/16/2018. Dr. Deshaun linares may follow-up today, 10/16/2018. Patient will need to establish with a new orthopedic surgeon in [place], worry intends to go upon his discharge. He will need to establish with Primary Care after his discharge. 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 No fevers or chills, no cough or dyspnea. Pain is adequately controlled. Objective: Vital Signs Temp Pulse Resp BP Pulse Ox 36.8 C 74 18 117/72 98 10/17/18 07:52 10/17/18 07:52 10/17/18 07:52 10/17/18 07:52 10/17/18 07:52 Laboratory Results 10/16/18 20:00 10/16/18 20:00 10/16/18 10/17/18 10/18/18 05:59 05:59 05:59 Intake Total 1500 2150 300 Balance 1500 2150 300 Physical Exam - Physical Exam General Appearance: WD/WN, alert, no apparent distress Respiratory: normal breath sounds, No crackles, No rhonchi, No wheezing Cardiac/Chest: regular rate, rhythm, No edema, No diastolic murmur, No systolic murmur Skin: normal color, warm/dry, other (Bandage over right thorax is clean, without drainage.) Neuro/Psych: alert, normal mood/affect, oriented x 3 ICD10 Worksheet Patient Problems: Problems Problem Status Onset Closed flail chest Acute Closed fracture of right distal radius Acute Closed perilunate dislocation of left wrist Acute Fracture of iliac wing Acute Multiple fractures of ribs, right side, initial encounter for closed fracture Acute Pneumothorax, right Acute
--- NOTE | 2018-10-17 14:45 | PDOREHIP ---
Admission [facility] - Admission - 3 Day Assessment Period Admission Date/Day 1: 10/11/18 Day 2: 10/12/18 Day 3: 10/13/18 - Active Diagnoses Comorbidities and Co-existing Conditions at Admission: 09740. None of the Above Discharge [facility] - Discharge - 3 Day Assessment Period 2 Days Prior to Anticipated Discharge Date: 10/16/18 1 Day Prior to Anticipated Discharge Date: 10/17/18 Anticipated Discharge Date: 10/18/18 - Discharge Skin Conditions Unhealed Pressure Ulcer (1 or more/Stage 1 or >)-Discharge: 0. No # Stage 1 Pressure Ulcers-Discharge: 0 # Stage 2 Pressure Ulcers-Discharge: 0 # of These Stage 2 Pressure Ulcers Present on Admission: 0 # Stage 3 Pressure Ulcers-Discharge: 0 # of These Stage 3 Pressure Ulcers Present on Admission: 0 # Stage 4 Pressure Ulcers-Discharge: 0 # of These Stage 4 Pressure Ulcers Present on Admission: 0 # Unstageable Pressure Ulcers (Non-remove Dress)-Discharge: 0 # These Unstageable Pressure Ulcers (NRD)-Present on Admit: 0 # Unstageable Pressure Ulcers (Slough/Eschar)-Discharge: 0 # These Unstageable Pressure Ulcers(Slough) Present on Admit: 0 # Unstageable Pressure Ulcers (Deep Tissue Injury)-Discharge: 0 # These Unstageable Pressure Ulcers (DTI) Present on Admit: 0
--- NOTE | 2018-10-17 15:10 | TRAUMAPN ---
Trauma Progress Note Assessment/Plan: 27 Y M s/p traumatic fall, polytrauma. Injuries previously outlined. Reviewed CXR films with Dr. Keating today. All is stable. Tiny PTX improved. Basilar consolidation improved. Ok from our standpoint for patient to travel home to [place] to recover with family. May travel by car as planned but also ok for travel with commercial airline in pressurized cabin. Patient at increased risk of DVT/PE given trauma, surgery, and travel. Recommend ASA 81 mg day before and on day of travel. Recommend compression socks. Needs to roll ankles/ stop and walk from time to time for better venous return. Discussed this with Merlyn, case management. Also recommend patient obtain his operative reports and also his films (actual images) from his hospital stay for his MD that he will be following up with in [place]. Recommend f/u with a trauma surgeon there and with orthopedic surgeon as needed or per his orthopedist's recommendation. Patient not actually examined today--just CXR films personally reviewed today. Objective: Vital Signs Temp Pulse Resp BP Pulse Ox 36.8 C 74 18 117/72 98 10/17/18 07:52 10/17/18 07:52 10/17/18 07:52 10/17/18 07:52 10/17/18 07:52 Laboratory Results 10/16/18 20:00 10/16/18 20:00 10/16/18 10/17/18 10/18/18 05:59 05:59 05:59 Intake Total 1500 2150 780 Balance 1500 2150 780
--- NOTE | 2018-10-17 16:12 | SOAPPROG ---
SOAP Progress Note Assessment/Plan: Assessment: SEEN TODAY CXR WELL EXPANDED AND STABLE BS EQUAL/ CHEST MINIMALLY TENDER/ DRESSING DRY AND INTACT/ WOUNDS OK COR RR NEURO INTACT AND SYMMETRIC AFEBRILE/ VS STABLE OK FOR COMMERCIAL FLIGHT Plan:HOME TOMORROW 10/17/18 16:10 Objective: Vital Signs Temp Pulse Resp BP Pulse Ox 36.8 C 74 18 117/72 98 10/17/18 07:52 10/17/18 07:52 10/17/18 07:52 10/17/18 07:52 10/17/18 07:52 Laboratory Results 10/16/18 20:00 10/16/18 20:00 10/16/18 10/17/18 10/18/18 05:59 05:59 05:59 Intake Total 1500 2150 780 Balance 1500 2150 780 ICD10 Worksheet Patient Problems: Problems Problem Status Onset Closed flail chest Acute Closed fracture of right distal radius Acute Closed perilunate dislocation of left wrist Acute Fracture of iliac wing Acute Multiple fractures of ribs, right side, initial encounter for closed fracture Acute Pneumothorax, right Acute
[2018-10-18] MEDS: IBUPROFEN 800 MG TAB PO SCH (06:34)
[2018-10-18 06:36] VITALS: BP 117/71
[2018-10-18] MEDS: POLYETHYLENE GLYCOL 3350 17 GM PKT PO SCH (08:42)
[2018-10-18] MEDS: traMADol 50 MG TAB PO PRN (08:42)
[2018-10-18] MEDS: NEOMY SULF/BACITRAC ZN/POLY 30 GM OINTTUBE TP SCH (12:23)
--- NOTE | 2018-10-18 13:10 | GDS ---
[f rep st] DISCHARGE SUMMARY ADMITTING DIAGNOSIS: Debility due to multiple trauma with nonweightbearing on the right lower extremity and weightbearing allowed through forearms bilaterally. DISCHARGE DIAGNOSIS: Debility due to multiple trauma with nonweightbearing on the right lower extremity and weightbearing allowed through forearms bilaterally. OTHER DISCHARGE DIAGNOSES: 1. Multiple rib fractures and hemopneumothorax. 2. Right cheek and right orbital floor fractures. CONSULTATIONS: He was seen in followup by the trauma service, Dr. Keating. PROCEDURES: There were none. COMPLICATIONS: There were none. HISTORY/HOSPITAL COURSE: This patient was admitted from [facility]. He was brought there on 09/26/2018 after 60-foot fall while free solo rock climbing. He had multiple injuries including right cheek and orbital floor fractures, multiple rib fractures on the right, right acetabular fracture, right distal radius and left wrist fractures. He had hemopneumothorax. He had ORIF of the right distal radius fracture and of the left wrist fracture including placement of an external fixator. He required chest tube placement and had rapid reaccumulation of hemopneumothorax after it was removed. Subsequently, he had video-assisted thoracoscopy with right lung decortication. He was eventually medically stabilized and ready for inpatient rehabilitation. He did well in rehabilitation and recovered independence with bed mobility and transfers. He was able to ambulate 500 feet with a bilateral platform front- wheeled walker. He climbed and descended 1 curb step with standby assist. He was able to do grooming and hygiene standing with standby assist. He did a car transfer with standby assist. He accomplished all of his ADLs with modified independence using assistive devices and he advanced to independent in his room with a platform front-wheeled walker as of 10/17/2018. He was seen by the trauma service with chest x-rays x2 done showing minimal residual pneumothorax. He was cleared for travel either by air or by automobile. Recommendation was made for him to take a baby aspirin on the day of travel due to likelihood of prolonged sitting and risk for DVT. He remained touchdown weightbearing status in the right lower extremity. He will be discharging and returning to his parents' home in [place] prior to his scheduled followup with Dr. Burk, the local orthopedic surgeon. He will seek followup with an orthopedic surgeon in [place], [place]. He did well with pain management and was using tramadol and ibuprofen. He used tramadol on the day of discharge but not in the prior 2 days. Lab studies during his stay showed improving anemia. He had a low vitamin-D level at 21, and was advised to take 2000 units per day vitamin-D supplement. DISPOSITION: Initially to a hotel with his father for 1 day and then subsequently he will drive with his father back to [place], [place]. CONDITION ON DISCHARGE: Good. ACTIVITY: Ad martha but he is to maintain touchdown weightbearing on the right lower extremity. DIET: Regular. MEDICATIONS UPON DISCHARGE: 1. Acetaminophen 650 mg p.o. q.4 hours p.r.n. 2. Ibuprofen 800 mg p.o. q.8 hours p.r.n. 3. Polyethylene glycol 17 g p.o. daily. 4. Senna 1 tab p.o. b.i.d. p.r.n. 5. Tramadol 50 to 100 mg p.o. q.6 hours p.r.n. 6. Vitamin-D 2000 units p.o. Daily ISSUES TO BE ADDRESSED AT FOLLOWUP: 1. Right acetabular fracture. Continue toe-touch weightbearing. He will follow up with an orthopedic surgeon in [place], [place]. 2. Multiple rib fractures and history of hemopneumothorax. He was advised to limit activities that would place stress on his thorax for 2 months, and if he has continued symptoms of pain, he should consider surgical referral for possible surgical fixation of the rib fractures. Greater than 30 minutes were spent on this discharge including medication reconciliation, coordination of care, and counseling patient and his father. Patient was seen and examined on the day of discharge. /[id number]/MODL MTDD
== END 2018-10-18 12:05 | disposition home or self-care (01) | DRG 560 ==
LOC: F3E 16:21
PROVIDERS: ADMIT Internal Medicine Hospice and Palliative Medicine; ATTEND Internal Medicine Hospice and Palliative Medicine
DX: S22.5XXD Flail chest, subsequent encounter for fracture with routine healing (principal); S52.501D Unspecified fracture of the lower end of right radius, subsequent encounter for closed fracture with routine healing; S53.005D Unspecified dislocation of left radial head, subsequent encounter; S32.301D Unspecified fracture of right ilium, subsequent encounter for fracture with routine healing; S02.31XD Fracture of orbital floor, right side, subsequent encounter for fracture with routine healing; S02.401D Maxillary fracture, unspecified side, subsequent encounter for fracture with routine healing; S02.402D Zygomatic fracture, unspecified side, subsequent encounter for fracture with routine healing; S09.90XD Unspecified injury of head, subsequent encounter; W15.XXXD Fall from cliff, subsequent encounter; Y93.31 Activity, mountain climbing, rock climbing and wall climbing; D64.9 Anemia, unspecified; E87.1 Hypo-osmolality and hyponatremia; R63.4 Abnormal weight loss; R41.3 Other amnesia
CPT/HCPCS: 82306-90; 97110-GO; 97110-GP; 97116-GP; 97140-GP; 97161-GP; 97165-GO; 97530-GO; 97530-GP; 97535-GO